=== PATIENT | female | born 1965 | race Caucasian/White ===

== ENCOUNTER 2024-02-12 14:31 | Emergency (ER) | payer OTHER, SELFPAY ==
[2024-02-12 14:42] VITALS: BP 163/93
[2024-02-12 15:01] LABS: Urine Albumin Negative (Neg - Trace); Urine Bilirubin Negative (Negative); Urine Character Clear (Clear); Urine Color Yellow; Urine Glucose Negative (Negative); Urine Ketone Negative (Negative); Urine Leukocyte Negative (Negative); Urine Nitrite Negative (Negative); Urine Occult Blood Negative (Negative); Urine Specific Gravity 1.005 (<1.030); Urine Urobilinogen Negative (Neg - 1+)
[2024-02-12 15:07] LABS: % Basophils 0.4 % (0-2); % Eosinophils 0.9 % (0-6); % Immature Granulocytes 0.2 % (0-0.5); % Lymphocytes 29.9 % (20.5-51.1); % Neutrophils 60.6 % (42.2-75.2); Absolute Eosinophils 0.1 10^3/uL (0-0.7); Absolute Lymphocytes 1.6 10^3/uL (1.2-3.4); Absolute Monocytes 0.4 10^3/uL (0.1-0.6); Absolute Neutrophils 3.2 10^3/uL (1.4-6.5); Hematocrit 39.9 % (37.0-47.0); Hemoglobin 13.7 g/dL (12.0-16.0); Mean Corp Hgb Conc. 34.3 g/dL (33.0-37.0); Mean Corpuscular Hgb 29.9 pg (27.0-31.0); Mean Corpuscular Volume 87.1 fL (81.0-99.0); Mean Platelet Volume 9.8 fL (7.4-10.4); Nucleated Red Blood Cells % 0 %; Platelet Count 169 10^3/uL (130-400); Red Blood Cell Count 4.58 10^6/uL (4.20-5.40); Red Cell Dist. Width 12.4 % (11.5-14.5); White Blood Cell Count 5.4 10^3/uL (4.8-10.8)
[2024-02-12 15:16] LABS: ALT (SGPT) 26 U/L (0-35); AST (SGOT) 31 U/L (14-36); Albumin 4.4 g/dl (3.5-5.0); Alkaline Phosphatase 66 U/L (38-126); Blood Urea Nitrogen 14 mg/dl (7-17); Calcium 9.2 mg/dl (8.4-10.2); Carbon Dioxide 26 mmol/L (22-30); Chloride 99 mmol/L (98-107); Glucose 95 mg/dl (70-99); Lipase 176 U/L (23-300); Potassium 3.8 mmol/L (3.5-5.1); Sodium 135 mmol/L (135-145); Total Bilirubin 0.6 mg/dl (0.2-1.3); Total Protein 6.7 g/dl (6.3-8.2); eGFR > 60.00
--- NOTE | 2024-02-12 17:43 | ED.GENMED ---
History of Present Illness
<Candice Soto MD, Resident - Last Filed: 02/12/24 17:52>
General
Chief Complaint: Abdominal Pain
Time Seen by Provider: 02/12/24 17:16
History of Present Illness
History of Present Illness:
58 y/o female with past medical history of hypertension and chronic low back pain presenting with right sided lower abdominal pain since 5 days ago. Pt notes had decreased bowel movements last week, last bowel movement this morning. Per patient,
severity of pain is 7/10, pain is aggravated by moving. Denies fever, chills, nausea/vomiting, chest pain, cough, urinary symptoms, melena, hematochezia.
Her last colonoscopy was 10 years ago which pt reports was unremarkable.
Past History
<Candice Soto MD, Resident - Last Filed: 02/12/24 17:52>
Past History
ED Past Medical History: HTN
ED Past Surgical History: Appendectomy, Gynecological (LEEP 2014) and Other (Bilateral hernia in childhood)
Review of Systems
<Candice Soto MD, Resident - Last Filed: 02/12/24 17:52>
Review of Systems
Constitutional: Reports no symptoms
EENT: Reports no symptoms
Respiratory: Reports no symptoms
Cardiac: Reports no symptoms
ABD/GI: Reports abdominal pain
: Reports no symptoms
Musculoskeletal: Reports no symptoms
Skin: Reports no symptoms
Neurological: Reports no symptoms
Endocrine: Reports no symptoms
Hematologic/Lymphatic: Reports no symptoms
Psychiatric: Reports no symptoms
Phy Exam
<Candice Soto MD, Resident - Last Filed: 02/12/24 17:52>
Physical Exam
Physical Exam:
GENERAL: Alert, in no apparent distress
EYE: pupils equal and reactive
NECK: Supple, no significant adenopathy.
ENT: o/p clr, mmm.
CARDIAC: Regular rate and rhythm .
LUNGS: Clear breath sounds bilaterally, no acute respiratory distress, no wheezes/rales/rhonchi
ABDOMEN: Soft, mild right lower abdominal tenderness, no r/g, no cvat
NEUROLOGICAL: A no daksha, no focal neuro deficits
SKIN: Warm and dry, skin intact.
MUSCULOSKELETAL: No edema, well perfused.
PSYCH: Normal and appropriate interaction.
Course
<Candice Soto MD, Resident - Last Filed: 02/12/24 17:52>
Orders/Labs/Results
Orders:
Orders
02/12/24 14:49
Complete Blood Count/With Diff Urgent
Comprehensive Metabolic Panel Urgent
Lipase Urgent
02/12/24 14:54
Urinalysis Reflex To Culture Urgent
Date Specimen was Collected: 02/12/24
Time Specimen was Collected: 14:45
02/12/24 17:42
CT Abd/pelvis W Iv Cont Urgent
Comment:
Reason For Exam: lwoer abd pain
02/12/24 14:49
02/12/24 14:49
Vital Signs
Initial and Last Documented VS:
Initial Vital Signs
Temp Pulse Resp BP Pulse Ox
98.1 F 77 19 163/93 98
02/12/24 14:42 02/12/24 14:42 02/12/24 14:42 02/12/24 14:42 02/12/24 14:42
Last Documented Vital Signs
Temp Pulse Resp BP Pulse Ox
98.1 F 68 19 117/76 96
02/12/24 14:42 02/12/24 18:31 02/12/24 14:42 02/12/24 18:31 02/12/24 18:35
<Antwan Collado DO - Last Filed: 02/12/24 20:43>
Orders/Labs/Results
Orders:
Orders
02/12/24 14:49
Complete Blood Count/With Diff Urgent
Comprehensive Metabolic Panel Urgent
Lipase Urgent
02/12/24 14:54
Urinalysis Reflex To Culture Urgent
Date Specimen was Collected: 02/12/24
Time Specimen was Collected: 14:45
02/12/24 17:42
CT Abd/pelvis W Iv Cont Urgent
Comment:
Reason For Exam: lwoer abd pain
02/12/24 14:49
02/12/24 14:49
Vital Signs
Initial and Last Documented VS:
Initial Vital Signs
Temp Pulse Resp BP Pulse Ox
98.1 F 77 19 163/93 98
02/12/24 14:42 02/12/24 14:42 02/12/24 14:42 02/12/24 14:42 02/12/24 14:42
Last Documented Vital Signs
Temp Pulse Resp BP Pulse Ox
98.1 F 68 19 117/76 96
02/12/24 14:42 02/12/24 18:31 02/12/24 14:42 02/12/24 18:31 02/12/24 18:35
<Candice Soto MD, Resident - Last Filed: 02/12/24 17:52>
MDM/Problems Addressed
Differential Diagnosis Includes:
Diverticulitis
Constipation
Ovarian mass
MDM/Problems Addressed:
58 y/o female with right lower abdominal pain
# right lower abdominal pain
- Abdomen pelvis CT scan
- CMP, lipase, U/A
<Candice Soto MD, Resident - Last Filed: 02/12/24 17:52>
*Critical Care Note
Total Time (30-74mins, 75-104mins- exclusive of procedures): Not Applicable
<Antwan Collado DO - Last Filed: 02/12/24 20:43>
Update Note
Update Note:
8:[address] scan noted
ED Attending Note
<Candice Soto MD, Resident - Last Filed: 02/12/24 17:52>
-
Portions of this chart may have been created with voice recognition software.� Occasional wrong word or��sound alike� substitutions may have occurred due to the inherent limitations of voice recognition software.
<Antwan Collado DO - Last Filed: 02/12/24 20:43>
ED Attending Note
Patient seen and examined by attending physician: Yes
I performed a history and physical exam of patient and discussed management with resident, I reviewed resident's note and agree with documented findings and plan of care.: Yes
ED Attending Note:
Seen with the resident examined independently 58-year-old female status post appendectomy status post groin hernia repair presents with a few days of right greater than left lower abdominal pain with some constipation last colonoscopy was 10 years
ago here she has mild tenderness on exam but nontoxic labs are noted CAT scan pending
Discharge Plan
Departure
Patient Disposition: Home (Routine Discharge)
Date of Disposition: 02/12/24
Time of Disposition: 20:42
Patient with high blood pressure during this ER visit?: No
Condition: Good
Covid-19: Not Applicable
Discharge Problem:
Abdominal pain
Instructions: Abdominal Pain
Referrals:
Caridad Stringer DO [Family Provider] -
Interventions
Interventions:
*Risk Screen - Suicide Last Done: 02/12/24 14:43
*General Assessment Last Done: 02/12/24 17:56
*Neglect/Abuse Screening Last Done: 02/12/24 14:43
ED- Fall Risk Assessment Last Done: 02/12/24 17:56
*ED COVID-19 Vaccine History Last Done: 02/12/24 17:56
[place] Assessment Last Done: 02/12/24 18:35
Discharge Date and Time
Print Language: SWISS
[2024-02-12 17:56] VITALS: BMI 32.2
[2024-02-12 18:29] VITALS: BP 117/76
[2024-02-12 18:31] VITALS: BP 117/76
[2024-02-12 19:00] VITALS: BP 121/80
[2024-02-12 20:33] VITALS: BP 118/74
== END 2024-02-12 21:12 | disposition home or self-care (01) ==
LOC: EMR 14:31
PROVIDERS: Emergency Medicine; EMERGENCY PHYSICIAN Emergency Medicine; FAMILY PHYSICIAN Family Medicine
DX: R10.31 Right lower quadrant pain (principal); I10 Essential (primary) hypertension; G89.29 Other chronic pain; M54.50 Low back pain, unspecified; Z90.49 Acquired absence of other specified parts of digestive tract
CPT/HCPCS: 99284; 74177; 80053; 81003; 83690; 85025; Q9967